=== PATIENT | male | born 1950 | race Caucasian/White ===

== ENCOUNTER → 2017-02-04 | Outpatient (CLI) | payer MEDICARE, OTHER ==
[2017-02-04 15:00] LABS: Non-African American GFR(MDRD) >60 (>60 ml/min/1.73 sqM)
== END | disposition home or self-care (01) ==
LOC: LABWHC1 14:17
PROVIDERS: ATTEND Neurological Surgery
DX: B02.22 Postherpetic trigeminal neuralgia (principal)
CPT/HCPCS: 36415; 82565

== ENCOUNTER → 2017-02-06 | Outpatient (CLI) | payer MEDICARE, OTHER ==
--- NOTE | 2017-02-06 11:35 | MR ---
EXAMINATION TYPE: MR brain wo/w con DATE OF EXAM: 02/06/2017 11:18 AM COMPARISON: NONE HISTORY: Rt side post herpetic trigeminal neuralgia CONTRAST: Patient received 15 mL intravenous MultiHance gadolinium contrast. Multiplanar and multispin-echo imaging of the brain was performed . Pre and post contrast enhanced i mages are obtained. The ventricles, basal cisterns and sulci overlying the cerebral convexities are minimally enlarged. There is evidence of very mild periventricular white matter ischemic demyelination. Remote deep white matter insults are also noted. No acute edema is seen on diffusion weighted imaging. There is no evidence for midline shift or mass effect. Acute intracranial hemorrhage or extra-axial collection is not evident. No enhancing lesions are seen. The paranasal sinuses and mastoid air cells are well-aerated. IMPRESSION: Age-related atrophic and chronic small vessel ischemic change. No acute intracranial process at this time. No enhancing lesions are seen.
== END | disposition home or self-care (01) ==
LOC: RADMRIMAIN 10:25
PROVIDERS: ATTEND Neurological Surgery
DX: G31.89 Other specified degenerative diseases of nervous system (principal); I67.82 Cerebral ischemia; G50.0 Trigeminal neuralgia
CPT/HCPCS: 70553; A9577

== ENCOUNTER → 2017-04-20 | Outpatient (CLI) | payer MEDICARE, OTHER ==
[2017-04-20 10:11] LABS: EKG EKG PERFORMED
[2017-04-20 10:43] LABS: Partial Thromboplastin Time 23.4 sec (22.0-30.0); Prothrombin Time 10.5 sec (9.0-12.0)
[2017-04-20 10:44] LABS: CH 31.2; HCT 49.7 % (39.0-53.0); HDW 2.37; HGB 15.8 gm/dL (13.0-17.5); MCH 31.1 pg (25.0-35.0); MCHC 31.7 g/dL (31.0-37.0); MCV 98.1 fL (80.0-100.0); Mean Platelet Volume 6.8; RBC 5.07 m/uL (4.30-5.90); RDW 13.9 % (11.5-15.5)
--- NOTE | 2017-04-20 10:51 | XR ---
EXAMINATION TYPE: XR chest 2V DATE OF EXAM: 04/20/2017 COMPARISON: NONE TECHNIQUE: PA and lateral views submitted. HISTORY: Preop FINDINGS: The lungs are clear and there is no pneumothorax, pleural effusion, or focal pneumonia. Curvature o f the spine. Biapical pleural thickening. Arthropathy of the AC joints. Hyperinflation suggests COPD. Mild degenerative change of the spine. IMPRESSION: 1. No acute process.
[2017-04-20 10:52] LABS: Anion Gap 11 mmol/L; Blood Urea Nitrogen 15 mg/dL (9-20); Calcium 9.4 mg/dL (8.4-10.2); Carbon Dioxide 25 mmol/L (22-30); Chloride 106 mmol/L (98-107); Glucose 118 mg/dL (74-99); Non-African American GFR(MDRD) >60 (>60 ml/min/1.73 sqM); Potassium 4.5 mmol/L (3.5-5.1); Sodium 142 mmol/L (137-145)
[2017-04-20 11:05] LABS: Appearance,Urine Clear (Clear); Bilirubin,Urine Negative (Negative); Glucose,Urine (UA) Negative (Negative); Ketones,Urine Negative (Negative); Leukocyte Esterase,Urine Negative (Negative); Mucus,Urine Occasional /hpf; Nitrite,Urine Negative (Negative); PH, Urine 5.5 (5.0-8.0); Particle Count 3977; Protein,Urine Trace (Negative); RBC,Urine 1 /hpf (0-5); Specific Gravity,Urine 1.022 (1.001-1.035); UA Billing (MACRO vs. MICRO) MICRO; Urobilinogen,Urine <2.0 mg/dL (<2.0); WBC,Urine 1 /hpf (0-5)
== END | disposition home or self-care (01) ==
LOC: LABWHC1 09:59
PROVIDERS: ATTEND Neurological Surgery
DX: Z01.818 Encounter for other preprocedural examination (principal); Z01.810 Encounter for preprocedural cardiovascular examination; G50.0 Trigeminal neuralgia
CPT/HCPCS: 36415; 71020; 80048; 81001; 85027; 85610; 85730; 93005

== ENCOUNTER → 2023-04-21 | Outpatient (CLI) | payer MEDICARE, OTHER ==
--- NOTE | 2023-04-21 09:56 | XR ---
EXAMINATION TYPE: XR femur LT DATE OF EXAM: 04/21/2023 9:48 AM INDICATION: Patient age:Male; 72 years old; Reason for study: M79.605 PAIN IN LEFT LEG; COMPARISON: Left lower extremity radiograph the same date TECHNIQUE: The left femur was examined in AP and lateral projections. FINDINGS: Postfixation changes with intramedullary sabiha and transverse fixation screws involving the femur and visualized proximal tibia. However appears intact overlying. No surrounding periprosthetic lucency. No evidence of acute osseous pathology, joint dislocation, or soft tissue swelling IMPRESSION: 1. No acute osseous pathology. 2. Postfixation changes of the femur and proximal tibia. Hardware appears intact with appropriate al ignment.
--- NOTE | 2023-04-21 09:58 | XR ---
EXAMINATION TYPE: XR knee complete LT DATE OF EXAM: 04/21/2023 COMPARISON: Left lower extremity radiographs the same day HISTORY: Pain TECHNIQUE: Frontal and lateral views of the left knee were obtained.. FINDINGS: Postfixation changes with intramedullary sabiha involving the femur and visualized proximal t ibia. Hardware appears intact with appropriate alignment. No surrounding periprosthetic lucency. No e vidence of acute osseous pathology, joint dislocation, or soft tissue swelling . Incidental fabella. No joint effusion. No significant joint space narrowing or spurring. IMPRESSION: 1. No acute osseous pathology. 2. Postfixation changes of the femur and tibia. Hardware appears intact with appropriate alignment.
--- NOTE | 2023-04-21 09:59 | XR ---
EXAMINATION TYPE: XR tibia fibula LT DATE OF EXAM: 04/21/2023 9:48 AM INDICATION: Patient age:Male; 72 years old; Reason for study: M79.605 PAIN IN LEFT LEG; [facility]. COMPARISON: Left knee radiograph the same date. TECHNIQUE: The left tibia/fibula was examined in AP and lateral projections. FINDINGS: Postfixation changes of the tibia with intramedullary sabiha and fixation screw. No surroundin g periprosthetic lucency. Hardware appears intact with appropriate alignment. Healing changes of the shaft of the tibia without fracture line identified. No acute fracture or dislocation. IMPRESSION: 1. No evidence of acute fracture. 2. Postfixation changes of the tibia. Hardware appears intact with appropriate alignment.
== END | disposition home or self-care (01) ==
LOC: RADXRMAIN 08:48
PROVIDERS: ATTEND Family Medicine
DX: M79.605 Pain in left leg (principal); M25.562 Pain in left knee; Z98.890 Other specified postprocedural states

== ENCOUNTER → 2024-02-29 | Outpatient (CLI) | payer MEDICARE, OTHER | END | disposition home or self-care (01) | LOC: LABPRL 09:25 | PROVIDERS: ATTEND Family Medicine | CPT/HCPCS: 80053; 80061; 83036; 84439; 84443; 85025 ==